=== PATIENT | female | born 1955 | race Caucasian/White ===

== ENCOUNTER 2021-05-07 09:05 | Day surgery (SDC) | payer BC ==
[~2021-05-07] VITALS: Ht 162.6 cm; Wt 97.6 kg
[~2021-05-07 09:05] MED LIST: ASPIRIN E.C. 8181 MG PO; CENTRUM SILVER1 TA1 PO; EFFEXOR XR 150150 MG PO; FIBERCON625 MG PO; HCTZ 25MG25 MG PO; IRON65 MG PO; METOPROLOL25 MG PO; PLAVIX 75MG TAB75 MG PO; PRAVASTATIN40 MG PO; PROCARDIA XL 3030 MG PO; QUALITY CHOICE600 M1 PO
[2021-05-07 09:49] VITALS: BP 137/93; PULSE 67; TEMP 97.9
[2021-05-07] MEDS ORDERED: KLOR-CON/EF25 MEQ PO (09:53)
[2021-05-07] MEDS ORDERED: VENLAFAXINE225 MG PO (09:54)
[2021-05-07] MEDS ORDERED: PRAVACHOL80 MG PO (09:54)
[2021-05-07] MEDS ORDERED: MOBIC15 MG PO (09:55)
[2021-05-07] MEDS ORDERED: TOPROL XL 50MG50 MG PO (09:55)
[2021-05-07] MEDS ORDERED: ASPIRIN 81M81 MG/TA2 PO (09:56)
[2021-05-07] MEDS ORDERED: PRILOSEC 20MG20 MG PO (09:56)
[2021-05-07] MEDS ORDERED: PRESERVISION1 SGL PO (09:57)
[2021-05-07 12:25] VITALS: BP 122/75; PULSE 67; TEMP 97
--- NOTE | 2021-05-07 12:25 | NUR ---
PATIENT TRANSPORTED PER CART FROM GI SUITE TO BAY 5 ACCOMPANIED BY ENDO RN. PATIENT AMBULATED FROM CART TO CHAIR WITH 1 ASSIST WITH SLOW STEADY GAIT. MONITORS APPLIED. VSS ON ROOM AIR. PATIENT TALKS WITH STAFF. 1230 PATIENT GIVEN MUFFIN TO EAT AND APPLIE JUICE TO DRINK. DOCTOR IN ROOM AND SPEAKS WITH PATIENT.
[2021-05-07 12:30] VITALS: BP 125/81; PULSE 66
[2021-05-07 12:45] VITALS: BP 134/69; PULSE 69
[2021-05-07 12:55] VITALS: BP 133/74; PULSE 72
--- NOTE | 2021-05-07 12:55 | NUR ---
VSS ON ROOM AIR. PATIENT TOLERATES FOOD AND DRINK WITHOUT PROBLEMS. DISCHARGE INSTRUCTIONS GIVEN VERBAL AND DISCHARGE PACKET GIVEN TO PATIENT. QUESTIONS ANSWERED AND PATIENT VOICED UNDERSTANDING. PATIENT CHANGES INTO STREET CLOTHES. 1303 PATIENT DISCHARGED PER WHEEL CHAIR ACCOMPANIED BY AMB RN [facility]
== END 2021-05-07 13:03 | disposition home or self-care (01) ==
LOC: SDCO 09:05
DX: Z12.11 Encounter for screening for malignant neoplasm of colon (principal); Z80.0 Family history of malignant neoplasm of digestive organs; K64.1 Second degree hemorrhoids; I25.10 Atherosclerotic heart disease of native coronary artery without angina pectoris; I10 Essential (primary) hypertension; M19.90 Unspecified osteoarthritis, unspecified site; F41.9 Anxiety disorder, unspecified; Z79.899 Other long term (current) drug therapy; Z95.818 Presence of other cardiac implants and grafts
CPT/HCPCS: J2704; J7030

== ENCOUNTER 2023-12-02 09:51 | Day surgery (SDC) | payer MEDICARE, OTHER ==
[~2023-12-02] VITALS: Ht 162.6 cm; Wt 102.2 kg
[2023-12-02] VITALS (14 sets, daily range): BP systolic 122–157; BP diastolic 66–85; PULSE 69–78; TEMP 98.2–98.5
--- NOTE | 2023-12-02 09:40 | NUR ---
pt admitted to room by EMS. pt a&ox4. at bedside. vss. admission assessment complete. pt rates pain an 04/27. informed OR that pt has arrived. pt oriented to room. call light in reach. no needs at this time.
[~2023-12-02 09:51] MED LIST changes: +ASPIRIN 81M81 MG/TA2 PO; +KLOR-CON/EF25 MEQ PO; +MOBIC15 MG PO; +PRAVACHOL80 MG PO; +PRESERVISION1 SGL PO; +PRILOSEC 20MG20 MG PO; +TOPROL XL 50MG50 MG PO; +VENLAFAXINE225 MG PO
[2023-12-02] MEDS ORDERED: fentaNYL 50 MCG/ML 2 ML VIAL IV PRN (10:00)
[2023-12-02] MEDS ORDERED: HYDROmorphone 2 MG/1 ML VIAL IV PRN (10:00)
[2023-12-02] MEDS ORDERED: Ondansetron 4 MG/2 ML VIAL IV PRN ×2 (10:00→13:30)
[2023-12-02] MEDS ORDERED: droPERidol 2.5 MG/ML 2 ML VIAL IV PRN (10:00)
[2023-12-02] MEDS ORDERED: hydrALAZINE 20 MG/ML 1 ML VIAL IV PRN (10:00)
[2023-12-02] MEDS ORDERED: LR 1,000 ML IV SCH (10:00)
[2023-12-02] MEDS ORDERED: DITROPAN 5MG TAB5 MG PO (10:20)
[2023-12-02] MEDS ORDERED: HCTZ 25MG TAB25 MG PO (10:21)
--- NOTE | 2023-12-02 10:55 | NUR ---
pt off floor for procedure.
[2023-12-02] MEDS ORDERED: Rocuronium 50 MG/5 ML Multi-Dose VIAL ONE (10:57)
[2023-12-02] MEDS ORDERED: fentaNYL 50 MCG/ML 2 ML VIAL ONE ×3 (10:57→12:47)
[2023-12-02] MEDS ORDERED: Lidocaine PF 2% (20 MG/ML) 5 ML VIAL ONE (10:59)
[2023-12-02] MEDS ORDERED: Ketorolac 30 MG/ML VIAL ONE (11:00)
[2023-12-02] MEDS ORDERED: Ondansetron 4 MG/2 ML VIAL ONE (11:00)
[2023-12-02] MEDS ORDERED: NS 10 ML IV ONE (11:00)
[2023-12-02] MEDS ORDERED: dexAMETHasone 10 MG/ML VIAL ONE (11:00)
[2023-12-02] MEDS ORDERED: Morphine 4 MG/ML VIAL IV PRN (13:30)
--- NOTE | 2023-12-02 13:30 | NUR ---
pt back in room from surgery, at bedside. vss. pt a&ox4. pn controlled. x3 lap sites are cdi. call light in reach.
--- NOTE | 2023-12-02 20:03 | NUR ---
Patient assessed at this time, see shift assessment, denies pain or discomfort, dressing to abdomen CDI, hasn't passed gas yet, BS hypoactive, has been up to the bathroom, encouraged ambulation, denies further needs, call light and personal items within reach, will continue to monitor.
[2023-12-03 00:15] VITALS: BP_SYST 122
--- NOTE | 2023-12-03 02:10 | NUR ---
Patient awakened for IV antibiotics, denies pain or discomfort, will continue to monitor.
[2023-12-03 03:23] VITALS: BP 150/82; PULSE 85; TEMP 98.3
[2023-12-03 04:08] VITALS: BP_SYST 150
[2023-12-03] MEDS ORDERED: Omeprazole 20 MG **** subs to Pantoprazole 40 MG PO SCH (07:00)
[2023-12-03 07:19] VITALS: BP 126/77; PULSE 71; TEMP 98.1
[2023-12-03 07:53] LABS: BASO % 0.1 % (0.0-2.0); GRAN % 83.3 % (42.2-75.2); HEMOGLOBIN 10.7 g/dl (12.5-16.0); LYMPH # 1.2 K/mm3 (1.2-3.4); LYMPH % 8.6 % (20.0-51.0); MEAN CELL VOLUME 78 fl (80.0-100.0); MEAN CORPUSCULAR HEMOGLOBIN 25 pg (27-31); MEAN CORPUSCULAR HGB CONC 32 g/dl (33.0-37.0); MEAN PLATELET VOLUME 10.6 fl (7.4-10.4); MONO # 1.1 K/mm3 (0.1-0.6); MONO % 7.6 % (1.7-9.3); PLATELET COUNT 296 K/mm3 (130-400); RED BLOOD COUNT 4.32 M/mm3 (4.10-5.30); REDCELL DISTRIBUTION WIDTH-CV 15.1 % (11.5-14.5)
[2023-12-03 07:56] LABS: HEMATOCRIT 33.5 % (37.0-47.0)
--- NOTE | 2023-12-03 08:07 | NUR ---
pt a&ox4 sitting in recliner eating breakfast, tolerating diet. pt denies pain. x3 abdominal incisions are cdi. INT to left ac is patent. pt denies needs at this time. call light in reach.
[2023-12-03 08:12] LABS: ALBUMIN 2.7 gm/dL (3.4-4.8); BILIRUBIN,TOTAL 0.7 mg/dL (0.2-1.2); CALCIUM 8.5 mg/dL (8.4-10.2); CREATININE, serum 0.75 mg/dL (0.57-1.11); POTASSIUM 3.8 mmol/L (3.5-4.5); TOTAL PROTEIN 6.7 gm/dL (6.2-8.1)
[2023-12-03] MEDS ORDERED: Oxybutynin 5 MG TAB PO SCH (09:00)
[2023-12-03] MEDS ORDERED: hydroCHLOROthiazide 25 MG TAB PO SCH (09:00)
[2023-12-03 09:25] VITALS: BP_SYST 126
[2023-12-03] MEDS ORDERED: AMOXICILLIN 8751 TAB PO (09:26)
[2023-12-03] MEDS ORDERED: NORCO 325 MG-51 TAB PO (09:27)
--- NOTE | 2023-12-03 09:31 | NUR ---
SW met with patient to complete intake. Patient provides she lives in [facility] with spouse/DPOA/HC Raúl Qiu [phone]. Patient provides she is independent with ADLs, does not utilize DME, and home health services are not utilized at this time. PCP is Dr. Hayden, [facility]. Patient provides her plan is to return to her home upon discharge. SW will continue to follow. Discharge plan: home
--- NOTE | 2023-12-03 10:14 | NUR ---
INT discontinued. discharge instructions given to pt, all questions answered. pt waiting for to arrive to be escorted out.
--- NOTE | 2023-12-03 11:10 | NUR ---
pt escorted by wheelchair to personal vehicle.
== END 2023-12-03 11:10 | disposition home or self-care (01) ==
LOC: SURG 09:51 → SDCO 09:51 → SURG 09:51 → EDSTATUS 13:22 → SURG 12-03 11:10 → SDCO 12-03 11:10 → SURG 12-03 11:10
PROVIDERS: Surgery
DX: K80.00 Calculus of gallbladder with acute cholecystitis without obstruction (principal); K82.A1 Gangrene of gallbladder in cholecystitis; I25.10 Atherosclerotic heart disease of native coronary artery without angina pectoris; I10 Essential (primary) hypertension; Z79.899 Other long term (current) drug therapy
CPT/HCPCS: OP; G0378; G0379; J0295; J0690; J1100; J1885; J2405; J2704; J3010